=== PATIENT | female | born 1995 | race Two or more races ===

== ENCOUNTER 2020-10-29 09:22 | Emergency (ER) | payer OTHER, SELFPAY ==
--- NOTE | ~2020-10-29 | US_ITS ---
EXAMINATION: US RETROPERITONEAL LIMITED (RENAL ONLY) CLINICAL INFORMATION: Right flank pain. Evaluate for stone COMPARISON: None TECHNIQUE: 2 grayscale imaging of kidneys was performed. FINDINGS: RIGHT KIDNEY: 11.6 x 4.0 x 4.8 cm (SAG x AP x TRV). The kidney is normal in size, contour, and echogenicity. Renal cortical thickness is normal. No calculi or focal parenchymal lesions. No hydronephrosis. LEFT KIDNEY: 12.6 x 4.7 x 4.7 cm (SAG x AP x TRV). The kidney is normal in size, contour, and echogenicity. Renal cortical thickness is normal. No calculi or focal parenchymal lesions. No hydronephrosis. US/US renal BI IMPRESSION: Unremarkable renal ultrasound.
[2020-10-29 09:53] VITALS: BP 125/86; RESP 14; TEMP 36.1; O2SAT 100; BMI 36.8
--- NOTE | 2020-10-29 10:27 | ED_ITS ---
HPI - Female Genitourinary General Chief complaint: Urogenital-Female Stated complaint: blood in urine Time Seen by Provider: 10/29/20 10:27 Source: patient Mode of arrival: ambulatory Limitations: no limitations History of Present Illness MD elicited complaint: dysuria, UTI , back pain and other (hemturia) Onset (ago): day(s) (started Thursday) Location of symptoms: suprapubic Severity: moderate Quality of pain: cramping Consistency: intermittent Vaginal discharge: none Vaginal bleeding: none Urinary symptoms: Dysuria, Urgency, Frequency and Hematuria Exacerbating factors: urination Relieving factors: none Associated symptoms: abdominal pain, nausea and back pain Treatment prior to arrival: none Related Data Previous Rx's Medication Instructions Recorded cefuroxime axetil 500 mg PO BID 10 Days #20 tab 10/29/20 ibuprofen 600 mg PO Q6H PRN #30 tab 10/29/20 ondansetron 4 mg PO Q8H PRN #20 tab 10/29/20 phenazopyridine [Pyridium] 200 mg PO TID PRN #6 tab 10/29/20 Allergies Allergy/AdvReac Type Severity Reaction Status Date / Time No Known Allergies Allergy Verified 10/29/20 10:35 Review of Systems Review of Systems: Constitutional : No Weight loss, No Fever, No Chills ENT/Mouth : No sore throat, No Rhinorrhea Eyes: No Swelling, No Redness Cardiovascular : No Chest Pain, No SOB, NoEdema Respiratory : No Cough, No Sputum, No Wheezing Gastrointestinal : Positive Nausea, Positive Vomiting, no Diarrhea, positive abdominal Pain, No Hematochezia, No Melena Genitourinary : pos Dysuria, pos Urinary Frequency, pos Hematuria, No Urgency Musculoskeletal : No joint pain, No Myalgias, No Joint Swelling Skin : No Skin Lesions, No rash Neuro : No Weakness, No Numbness, No Dizziness, No Headache Psych : No Anxiety/Panic, No Depression Heme/Lymph: No Bruising, No Lymphadenopathy Endocrine : No Polyuria, No Polydipsia All other systems reviewed and are negative. [facility] Past Medical History Attestation statement: The following information was validated with the patient. Medical History No known health problems Social History Social History (Updated 10/29/20 @ 10:39 by Margy Green DO) Alcohol intake: never Smoking Status: Never smoker Use of substances other than those prescribed or required for medical reasons: No Advance Directives: Yes Advance Directives Information Provided: Yes Advance Directives on File: No Physical Exam Vital Signs: Vital Signs: Last Vital Signs Temp 97 F 10/29/20 09:53 Resp 14 10/29/20 09:53 BP 125/86 10/29/20 09:53 Pulse Ox 100 10/29/20 09:53 Body Mass Index 36.8 Appearance: Alert. Oriented X3. No acute distress. Eyes: Pupils equal, round and reactive to light. ENT: Pharynx normal. Neck: Normal inspection. Neck supple. CVS: Normal heart rate and rhythm. Pulses normal. Respiratory: No respiratory distress. Breath sounds normal. Abdomen: Soft and mild suprapubic ttp Back: mild R CVA ttp Skin: Skin warm and dry. Normal skin color. Normal skin turgor. Extremities: No lower extremity edema. No calf ttp Neuro: Oriented X 3. No motor deficit. No sensory deficit. Course Course Course Narrative: stable labs, stable VS, negative US can be managed as outpatient at this time MDM - Female Genitourinary MDM Narrative Medical decision making narrative: 25 yo female with 2 days of dysuria, hematuria, bladder spasms, nausea and mild back pain likely UTI vs pyelonephritis, she is not toxic, afebrile here, very mild CVA ttp - at this time will obtain basic labs, hydrate, IV ceftriaxone for UTI, US to evaluate for stones Lab Data Result diagrams: 10/29/20 10:46 10/29/20 10:46 Labs: Lab Results 10/29/20 10/29/20 10/29/20 Range/Units 10:04 10:04 10:46 WBC 12.6 H (4.8-10.8) X10*3/uL RBC 4.62 (4.20-5.50) X10*6/uL Hgb 13.2 (12.0-16.0) g/dl Hct 40.7 (37-47) % MCV 88.1 (80-98) fL MCH 28.6 (27.0-33.0) pg MCHC 32.4 (31.0-35.0) g/dl RDW 12.8 (11.0-16.0) % Plt Count 338 (160-400) X10*3/uL MPV 9.8 (9.4-12.3) fL Immature Gran % (Auto) 0.4 (0.0-0.4) % Neut % (Auto) 77.5 H (45-73) % Lymph % (Auto) 16.7 L (20-40) % [place] % (Auto) 4.6 (2-11) % Eos % (Auto) 0.6 (0-4) % Baso % (Auto) 0.2 (0-2) % Lymph # (Auto) 2.1 (1.2-4.9) X10*3/uL [place] # (Auto) 0.6 (0.1-1.2) X10*3/uL Eos # (Auto) 0.1 (0.0-0.4) X10*3/uL Baso # (Auto) 0.0 (0.0-0.2) X10*3/uL Abs Immat Gran (auto) 0.05 H (0.00-0.03) X10*3/uL Absolute Neuts (auto) 9.8 H (2.0-8.3) X10*3/uL Absolute Nucleated RBC 0.000 (0.0-0.012) X10*3/uL Nucleated RBC % (auto) 0.0 (0.0-0.2) /100WBC Hold Blue Top Sodium (135-145) mmol/L Potassium (3.3-5.1) mmol/L Chloride (96-108) mmol/L Carbon Dioxide (22-29) mmol/L Anion Gap (12-20) BUN (9-16) mg/dL Creatinine (0.5-1.4) mg/dL Estim Creat Clear Calc Estimated GFR Random Glucose (60-115) mg/dL Calcium (8.4-10.2) mg/dL Magnesium (1.6-2.6) mg/dL Total Bilirubin (0.0-1.0) mg/dL Direct Bilirubin (0.0-0.5) mg/dL AST (5-31) U/L ALT (0-31) U/L Alkaline Phosphatase (39-117) U/L Total Protein (6.5-8.0) g/dL Albumin (3.5-5.0) g/dL Lipase (8-78) U/L Urine Color YELLOW Urine Appearance HAZY Urine pH 6.0 (5.0-8.0) Ur Specific [place] 1.025 (1.005-1.025) Urine Protein NEG (NEG-TRACE) MG/DL Urine Glucose (UA) NEG (NEG) MG/DL Urine Ketones NEG (NEG) MG/DL Urine Blood 2+ H (NEG) Urine Nitrite POS H (NEG) Ur Leukocyte Esterase 1+ H (NEG) Urine RBC 1-4 (0) /HPF Urine WBC 15-29 H (0-4) /HPF Ur Squamous Epith Cells 3+ /LPF Urine Bacteria 3+ /LPF Urine Test NEGATIVE (NEGATIVE) 10/29/20 10/29/20 Range/Units 10:46 10:46 WBC (4.8-10.8) X10*3/uL RBC (4.20-5.50) X10*6/uL Hgb (12.0-16.0) g/dl Hct (37-47) % MCV (80-98) fL MCH (27.0-33.0) pg MCHC (31.0-35.0) g/dl RDW (11.0-16.0) % Plt Count (160-400) X10*3/uL MPV (9.4-12.3) fL Immature Gran % (Auto) (0.0-0.4) % Neut % (Auto) (45-73) % Lymph % (Auto) (20-40) % [place] % (Auto) (2-11) % Eos % (Auto) (0-4) % Baso % (Auto) (0-2) % Lymph # (Auto) (1.2-4.9) X10*3/uL [place] # (Auto) (0.1-1.2) X10*3/uL Eos # (Auto) (0.0-0.4) X10*3/uL Baso # (Auto) (0.0-0.2) X10*3/uL Abs Immat Gran (auto) (0.00-0.03) X10*3/uL Absolute Neuts (auto) (2.0-8.3) X10*3/uL Absolute Nucleated RBC (0.0-0.012) X10*3/uL Nucleated RBC % (auto) (0.0-0.2) /100WBC Hold Blue Top SEE NOTE Sodium 141 (135-145) mmol/L Potassium 4.2 (3.3-5.1) mmol/L Chloride 105 (96-108) mmol/L Carbon Dioxide 27 (22-29) mmol/L Anion Gap 13 (12-20) BUN 15 (9-16) mg/dL Creatinine 0.67 (0.5-1.4) mg/dL Estim Creat Clear Calc 140.2 Estimated GFR > 60 Random Glucose 85 (60-115) mg/dL Calcium 9.4 (8.4-10.2) mg/dL Magnesium 2.1 (1.6-2.6) mg/dL Total Bilirubin 0.8 (0.0-1.0) mg/dL Direct Bilirubin 0.3 (0.0-0.5) mg/dL AST 18 (5-31) U/L ALT 36 H (0-31) U/L Alkaline Phosphatase 140 H (39-117) U/L Total Protein 7.9 (6.5-8.0) g/dL Albumin 4.2 (3.5-5.0) g/dL Lipase 10 (8-78) U/L Urine Color Urine Appearance Urine pH (5.0-8.0) Ur Specific [place] (1.005-1.025) Urine Protein (NEG-TRACE) MG/DL Urine Glucose (UA) (NEG) MG/DL Urine Ketones (NEG) MG/DL Urine Blood (NEG) Urine Nitrite (NEG) Ur Leukocyte Esterase (NEG) Urine RBC (0) /HPF Urine WBC (0-4) /HPF Ur Squamous Epith Cells /LPF Urine Bacteria /LPF Urine Test (NEGATIVE) Discharge Plan Discharge Clinical Impression: Pyelonephritis Patient Disposition: Home, Self-Care Instructions: Kidney Infection (ED) Additional Instructions: return to ED for any worsening symptoms or concerns please take the oral antibiotic tonight Prescriptions: New cefuroxime axetil 500 mg tablet 500 mg PO BID 10 Days Qty: 20 RF: 0 ibuprofen 600 mg tablet 600 mg PO Q6H PRN (Reason: pain) Qty: 30 RF: 0 ondansetron 4 mg tablet,disintegrating 4 mg PO Q8H PRN (Reason: nausea and vomiting) Qty: 20 RF: 0 phenazopyridine [Pyridium] 200 mg tablet 200 mg PO TID PRN (Reason: pain) Qty: 6 RF: 0
[2020-10-29 10:30] LABS: Glucose Urine UA NEG (NEG); Leukocyte Esterase Urine 1+ (NEG); Nitrite Urine POS (NEG); Specific Gravity - Urine 1.025 (1.005-1.025); UACC Culture Trigger YES; UPreg QC Valid YES; Urine Blood 2+ (NEG); Urine Ketones NEG (NEG); Urine Pregnancy NEGATIVE (NEGATIVE); Urine Protein NEG (NEG-TRACE)
[2020-10-29 10:33] LABS: Appearance Urine HAZY; Color Urine YELLOW
[2020-10-29 10:41] LABS: Bacteria Urine 3+ /LPF; Squamous Epithelial Cell Urine 3+ /LPF
[2020-10-29] MEDS: Phenazopyridine HCL 200 MG TABLET PO (10:51)
[2020-10-29] MEDS: cefTRIAXone sodium 1 GM in 0.9 % Sodium Chloride 50 ML IV (10:51)
[2020-10-29] MEDS: Ketorolac Tromethamine 30 MG/ML VIAL IVPUSH (10:52)
[2020-10-29] MEDS: 0.9 % Sodium Chloride 1,000 ML 999 ML IVCONT (10:52)
[2020-10-29] MEDS: ondansetron HCL 4 MG/2 ML VIAL IVPUSH (10:52)
[2020-10-29 10:55] LABS: MANUAL DIFF FLAG NO
[2020-10-29 10:57] LABS: Basophils Percent Auto 0.2 % (0-2); Eosinophils Absolute Auto 0.1 X10*3/uL (0.0-0.4); Eosinophils Percent Auto 0.6 % (0-4); Hematocrit 40.7 % (37-47); Hemoglobin 13.2 g/dl (12.0-16.0); Imm Gran Abs Auto 0.05 X10*3/uL (0.00-0.03); Imm Gran Pct Auto 0.4 % (0.0-0.4); Lymphocytes Absolute Auto 2.1 X10*3/uL (1.2-4.9); Lymphocytes Percent Auto 16.7 % (20-40); Mean Corpuscular HGB Conc 32.4 g/dl (31.0-35.0); Mean Corpuscular Hemoglobin 28.6 pg (27.0-33.0); Mean Corpuscular Volume 88.1 fL (80-98); Mean Platelet Volume 9.8 fL (9.4-12.3); Monocytes Absolute Auto 0.6 X10*3/uL (0.1-1.2); Monocytes Percent Auto 4.6 % (2-11); Neutrophils Absolute Auto 9.8 X10*3/uL (2.0-8.3); Neutrophils Percent Auto 77.5 % (45-73); Platelet Count 338 X10*3/uL (160-400); Red Blood Count 4.62 X10*6/uL (4.20-5.50); Red Cell Distribution Width 12.8 % (11.0-16.0); White Blood Count 12.6 X10*3/uL (4.8-10.8)
[2020-10-29 11:32] LABS: Alanine Aminotransferase 36 U/L (0-31); Albumin Level 4.2 g/dL (3.5-5.0); Alkaline Phosphatase 140 U/L (39-117); Anion Gap 13 (12-20); Aspartate Amino Transferase 18 U/L (5-31); Bilirubin Direct 0.3 mg/dL (0.0-0.5); Bilirubin Total 0.8 mg/dL (0.0-1.0); Blood Urea Nitrogen 15 mg/dL (9-16); Calcium 9.4 mg/dL (8.4-10.2); Carbon Dioxide 27 mmol/L (22-29); Chloride 105 mmol/L (96-108); Creatinine Clr Calc Pharmacy 140.2; Estimated Glomerular Filt Rate > 60; Glucose Random 85 mg/dL (60-115); Lipase 10 U/L (8-78); Magnesium 2.1 mg/dL (1.6-2.6); Potassium 4.2 mmol/L (3.3-5.1); Sodium 141 mmol/L (135-145); Total Protein 7.9 g/dL (6.5-8.0)
--- NOTE | 2020-10-29 11:36 | PC.NURSE ---
pt ambulating to us w steady gait.
== END 2020-10-29 12:41 | disposition home or self-care (01) ==
PROVIDERS: Emergency Provider Emergency Medicine; PCP Internal Medicine
DX: N12 Tubulo-interstitial nephritis, not specified as acute or chronic (principal); R31.9 Hematuria, unspecified; Z79.899 Other long term (current) drug therapy
CPT/HCPCS: 36415; 76775; 80048; 80076; 81001; 81003; 81025; 83690; 83735; 85025; 87086; 87088; 87186; 96365; 96375; 99284; J0696; J1885; J2405

== ENCOUNTER 2020-12-23 19:31 | Emergency (ER) | payer OTHER, SELFPAY ==
--- NOTE | ~2020-12-23 | CT_ITS ---
EXAMINATION: CT ABDOMEN AND PELVIS WITH CONTRAST CLINICAL INFORMATION: Right flank pain. Abdomen pain. Hematuria. Nausea, vomiting COMPARISON: The report of renal ultrasound 10/29/20 is unremarkable TECHNIQUE: Multidetector volumetric images were obtained from the superior aspect of the liver through the pubic symphysis following administration 100 mL of Omnipaque 350 intravenous contrast. Sagittal and coronal reformatted images were obtained on the technologist's workstation. Oral contrast: No This CT examination was performed using dose optimization techniques as appropriate, variously including the following: *Automated exposure control *Adjustment of mA and/or kV according to patient size (this includes techniques or standardized protocols for targeted exams where dose is matched to indication/reason for exam; i.e. extremities or head) *Use of iterative reconstruction technique DLP: 942 mGy-cm FINDINGS: Digital Travel Administrator: No disproportionate small bowel dilation. Gas and fecal residue throughout the colon to level the rectum. No evidence of pneumoperitoneum. LUNG BASES: Small sliding-type hiatal hernia. LIVER, GALLBLADDER, AND BILIARY TREE: No suspicious abnormality in the liver. There is no opaque gallstone. There is no biliary dilation PANCREAS: Within normal limits SPLEEN: Normal ADRENAL GLANDS: Normal KIDNEYS AND URETERS: The renal pelves are mildly prominent. No dilation of the infundibula or calyces. There is a 0.2 cm nonobstructing lower pole right renal calculus 13.9 cm from the skin. No perinephric stranding. No ureteral calculus. There is a probably septated cyst in the lower pole the left kidney. No suspicious features. This does not require any further evaluation. The nephrograms are symmetric BLADDER: No abnormality demonstrated GASTROINTESTINAL TRACT: There is a large amount of fecal residue throughout the colon. No localized colonic wall thickening. No pericolonic fat stranding. No CT evidence of acute appendicitis. No small bowel dilation. Stomach is not well distended. ABDOMINAL WALL: No significant hernia is appreciated. LYMPH NODES: There are no enlarged abdominal or pelvic lymph nodes. There is no free intraperitoneal fluid. VASCULAR: There is no abdominal aortic aneurysm. The portal vein enhances. PELVIC VISCERA: The uterus appears within normal limits. There are likely some physiologic ovarian cysts. OSSEOUS STRUCTURES: No suspicious abnormality. CT/CT abdomen pelvis w con IMPRESSION: Punctate nonobstructing lower pole right renal calculus. No ureteral calculus demonstrated. No acute abnormality demonstrated. No evidence of bowel obstruction. Large amount of fecal residue in the colon.
[2020-12-23 19:36] VITALS: BP 130/67; PULSE 80; RESP 18; TEMP 36.8; O2SAT 100; BMI 37.2
[2020-12-23 19:53] VITALS: BP 119/80; PULSE 67; RESP 18; TEMP 36.9; O2SAT 100
[2020-12-23 20:03] VITALS: BP 121/64; PULSE 65
[2020-12-23 20:09] LABS: Glucose Urine UA NEG (NEG); Leukocyte Esterase Urine TRACE (NEG); Nitrite Urine NEG (NEG); Specific Gravity - Urine >= 1.030 (1.005-1.025); UACC Culture Trigger YES; Urine Blood NEG (NEG); Urine Ketones NEG (NEG); Urine Protein NEG (NEG-TRACE)
[2020-12-23 20:12] LABS: Appearance Urine CLOUDY; Color Urine YELLOW
[2020-12-23 20:28] LABS: Bacteria Urine TRACE /LPF; Calcium Oxalate Crystals Urine 3+ /LPF; RBC Urine 0-2 /HPF (0); Squamous Epithelial Cell Urine 4+ /LPF
[2020-12-23 20:29] LABS: UPreg QC Valid YES; Urine Pregnancy NEGATIVE (NEGATIVE)
[2020-12-23 20:49] LABS: MANUAL DIFF FLAG NO
[2020-12-23] MEDS: 0.9 % Sodium Chloride 1,000 ML 999 ML IVCONT (20:49)
[2020-12-23] MEDS: ondansetron HCL 4 MG/2 ML VIAL IVPUSH (20:50)
[2020-12-23] MEDS: Ketorolac Tromethamine 30 MG/ML VIAL IVPUSH (20:50)
[2020-12-23 20:52] LABS: Basophils Percent Auto 0.2 % (0-2); Eosinophils Absolute Auto 0.1 X10*3/uL (0.0-0.4); Eosinophils Percent Auto 1.5 % (0-4); Hematocrit 42.6 % (37-47); Hemoglobin 13.9 g/dl (12.0-16.0); Imm Gran Abs Auto 0.02 X10*3/uL (0.00-0.03); Imm Gran Pct Auto 0.2 % (0.0-0.4); Lymphocytes Absolute Auto 2.5 X10*3/uL (1.2-4.9); Lymphocytes Percent Auto 26.2 % (20-40); Mean Corpuscular HGB Conc 32.6 g/dl (31.0-35.0); Mean Corpuscular Hemoglobin 28.8 pg (27.0-33.0); Mean Corpuscular Volume 88.2 fL (80-98); Mean Platelet Volume 9.7 fL (9.4-12.3); Monocytes Absolute Auto 0.5 X10*3/uL (0.1-1.2); Monocytes Percent Auto 4.9 % (2-11); Neutrophils Absolute Auto 6.3 X10*3/uL (2.0-8.3); Platelet Count 349 X10*3/uL (160-400); Red Blood Count 4.83 X10*6/uL (4.20-5.50); Red Cell Distribution Width 12.8 % (11.0-16.0); White Blood Count 9.4 X10*3/uL (4.8-10.8)
[2020-12-23 21:00] VITALS: BP 129/65; PULSE 67
[2020-12-23 21:01] VITALS: BP 136/65; PULSE 68
--- NOTE | 2020-12-23 21:09 | ED.ABDPAIN ---
HPI - Abdominal Pain General Chief Complaint: Abdominal Pain Stated Complaint: Flank pain Time Seen by Provider: 12/23/20 19:59 Source: patient Mode of arrival: ambulatory Limitations: no limitations History of Present Illness HPI narrative: 25-year-old female with a past medical history of pyelonephritis presenting to the ED with complaints of bilateral back pain radiating to her bilateral flanks into her right lower quadrant for the past 5 days worse today. With associated urinary urgency / frequency. Reports that she also had hematuria that has resolved. Also reports nausea /vomiting and dizziness. Reports she is moving her bowels normally. Denies any headaches, head injury, changes in vision, neck pain/ stiffness, chest pain, shortness of breath, palpitations, blood in her emesis, diarrhea, constipation, black or bloody stools, vaginal bleeding or abnormal vaginal discharge. MD elicited complaint: abdominal pain and flank pain Pertinent past history: past UTI and other ( Pyelonephritis) Onset (ago): day(s) ( 5 days worse today) Pain Consistency: constant Location: L flank, R flank and other ( bilateral mid to lower back) Severity: moderate Quality: aching Radiation: RLQ Exacerbating factors: nothing Relieving factors: nothing Associated symptoms: nausea, vomiting, chills, dysuria and hematuria Related Data Previous Rx's Medication Instructions Recorded cefuroxime axetil 500 mg PO BID 10 Days #20 tab 10/29/20 ibuprofen 600 mg PO Q6H PRN #30 tab 10/29/20 ondansetron 4 mg PO Q8H PRN #20 tab 10/29/20 phenazopyridine [Pyridium] 200 mg PO TID PRN #6 tab 10/29/20 dicyclomine 10 mg PO BID #14 cap 12/23/20 nitrofurantoin monohyd/m-cryst 100 mg PO BID 7 Days #14 cap 12/23/20 [Macrobid] ondansetron HCl [Zofran] 4 mg PO Q8H PRN #14 tab 12/23/20 polyethylene glycol 3350 [Miralax] 17 g PO DAILY #238 g 12/23/20 Allergies Allergy/AdvReac Type Severity Reaction Status Date / Time No Known Allergies Allergy Verified 12/23/20 19:35 Review of Systems Review of Systems Constitutional : positive chills, No Weight loss, No Fever, No Night Sweats, No Fatigue, NoMalaise ENT/Mouth: No ear pain, No sore throat, No Difficulty swallowing Cardiovascular : No Chest Pain, No SOB, No Dyspnea on Exertion, No Orthopnea, NoEdema, No Palpitations Respiratory : No Cough, No Sputum, No Wheezing, No Dyspnea Gastrointestinal : positive nausea/ vomiting / abdominal pain, No Diarrhea, No blood streaked emesis, No coffee-ground emesis, No gross hematemesis, No blood streak stool, No gross hematochezia, No Melena Genitourinary : positive resolved hematuria, positive dysuria /urinary urgency /frequency, positive bilateral flank pain, No irregular bleeding, No Urinary Incontinence Musculoskeletal : No joint pain, No Myalgias, No Joint Swelling Skin : No Skin Lesions, No rash Neuro : No Weakness, No Numbness, No Paresthesias, No Loss of Consciousness, NoDizziness, No Headache Psych : No Social Issues, Heme/Lymph: No Bruising, No Bleeding,No Lymphadenopathy Endocrine : No Polyuria, No Polydipsia, No Temperature Intolerance Yes all other systems are reviewed and are negative Physical Exam Vital Signs: Vital Signs: Last Vital Signs Temp 98.4 F 12/23/20 19:53 Pulse 68 12/23/20 21:01 Resp 18 12/23/20 19:53 BP 136/65 12/23/20 21:01 Pulse Ox 100 12/23/20 19:53 Body Mass Index 37.2 vital signs have been reviewed as normal and appeared to be correct. Blood pressure normal. Heart rate normal. Respiration rate normal. Temperature normal. Oxygen saturation normal. Appearance: Alert. Oriented X3. No acute distress. Head: Normal external exam. Normocephalic. Eyes: PERRLA. EOMI. Conjunctiva and sclera normal. Eyelids normal. ENT: Pharynx normal. Uvula midline. Moist mucous membranes. Neck: Normal inspection. Neck supple. FROM. No adenopathy. No meningeal signs. CVS: Normal heart rate and rhythm. Heart sound normal. No murmurs noted. Pulses normal throughout. Respiratory: No respiratory distress. Painless inspiration. Breath sounds normal. No wheezes/rales/rhonchi noted. Chest nontender. No accessory muscle usage noted or decreased air movement noted. Abdomen: Soft and mild tenderness to palpation to bilateral flank/right lower quadrant / suprapubic area. Nondistended. No guarding. No rigidity. Bowel sounds normal in all 4 quadrants. No distention noted. No organomegaly noted. No visible injury noted. No rebound tenderness. Negative Rovsing sign. Negative obturator's sign. Negative psoas sign. Negative Velasquez sign. Back: positive bilateral CVA tenderness. Full range of motion noted. Skin: Skin warm and dry. Normal skin color. Normal skin turgor. No rashes/lesions/lacerations noted. Extremities: Extremities exhibit normal range of motion. Extremities nontender. Neuro: Oriented X 3. No motor deficit. No sensory deficit. Reflexes normal. Normal steady gait. Course Course Course Narrative: 20pm - 25-year-old female with a past medical history of pyelonephritis presenting to the ED with complaints of bilateral back pain radiating to her bilateral flanks into her right lower quadrant for the past 5 days worse today. With associated urinary urgency / frequency. Reports that she also had hematuria that has resolved. Also reports nausea /vomiting and dizziness. Reports she is moving her bowels normally. Denies any headaches, head injury, changes in vision, neck pain/ stiffness, chest pain, shortness of breath, palpitations, blood in her emesis, diarrhea, constipation, black or bloody stools, vaginal bleeding or abnormal vaginal discharge. Plan: Labs, UA, Orthostatic vitals, CT scan of abdomen pelvis with IV contrast. provide a L of IV fluids, 4 mg of Zofran and 30 mg of IV Toradol then re-evaluate. Reevaluation(s) Reevaluation #1: - patient with baseline elevated LFTs otherwise all other labs are within normal limits. Urine is negative. Patient with +1 leukocytes otherwise negative for nitrates. Although patient had symptoms in the past and was positive urine culture therefore will treat at this time. Otherwise CT scan of abdomen and pelvis revealed punctuate nonobstructing lower pole right renal calculus. No urethral calculus demonstrated. No acute abnormality demonstrated. No evidence of bowel obstruction. Large amount of fecal residue in the colon. - Therefore will DC home with antibiotics for UTI and symptomatic treatment along with Colace and MiraLax for constipation and instructions follow-up with primary care provider. Patient understands agrees with this plan. Time: 23:05 [facility] - Abdominal Pain Medical Records Attestation: I reviewed the patient's medical records. Lab Data Attestation: I reviewed the patient's lab results. Result diagrams: 12/23/20 20:46 12/23/20 20:46 Labs: Lab Results 12/23/20 12/23/20 12/23/20 Range/Units 19:57 19:57 20:46 WBC 9.4 (4.8-10.8) X10*3/uL RBC 4.83 (4.20-5.50) X10*6/uL Hgb 13.9 (12.0-16.0) g/dl Hct 42.6 (37-47) % MCV 88.2 (80-98) fL MCH 28.8 (27.0-33.0) pg MCHC 32.6 (31.0-35.0) g/dl RDW 12.8 (11.0-16.0) % Plt Count 349 (160-400) X10*3/uL MPV 9.7 (9.4-12.3) fL Immature Gran % (Auto) 0.2 (0.0-0.4) % Neut % (Auto) 67.0 (45-73) % Lymph % (Auto) 26.2 (20-40) % [place] % (Auto) 4.9 (2-11) % Eos % (Auto) 1.5 (0-4) % Baso % (Auto) 0.2 (0-2) % Lymph # (Auto) 2.5 (1.2-4.9) X10*3/uL [place] # (Auto) 0.5 (0.1-1.2) X10*3/uL Eos # (Auto) 0.1 (0.0-0.4) X10*3/uL Baso # (Auto) 0.0 (0.0-0.2) X10*3/uL Abs Immat Gran (auto) 0.02 (0.00-0.03) X10*3/uL Absolute Neuts (auto) 6.3 (2.0-8.3) X10*3/uL Absolute Nucleated RBC 0.000 (0.0-0.012) X10*3/uL Nucleated RBC % (auto) 0.0 (0.0-0.2) /100WBC Hold Blue Top Sodium (135-145) mmol/L Potassium (3.3-5.1) mmol/L Chloride (96-108) mmol/L Carbon Dioxide (22-29) mmol/L Anion Gap (12-20) BUN (9-16) mg/dL Creatinine (0.5-1.4) mg/dL Estim Creat Clear Calc Estimated GFR Random Glucose (60-115) mg/dL Calcium (8.4-10.2) mg/dL Magnesium (1.6-2.6) mg/dL Total Bilirubin (0.0-1.0) mg/dL AST (5-31) U/L ALT (0-31) U/L Alkaline Phosphatase (39-117) U/L Total Protein (6.5-8.0) g/dL Albumin (3.5-5.0) g/dL Lipase (8-78) U/L Beta HCG, Quant mIU/mL Urine Color YELLOW Urine Appearance CLOUDY Urine pH 6.0 (5.0-8.0) Ur Specific [place] >= 1.030 H (1.005-1.025) Urine Protein NEG (NEG-TRACE) MG/DL Urine Glucose (UA) NEG (NEG) MG/DL Urine Ketones NEG (NEG) MG/DL Urine Blood NEG (NEG) Urine Nitrite NEG (NEG) Ur Leukocyte Esterase TRACE H (NEG) Urine RBC 0-2 (0) /HPF Urine WBC 1-4 (0-4) /HPF Ur Squamous Epith Cells 4+ /LPF Calcium Oxalate Crystal 3+ /LPF Urine Bacteria TRACE /LPF Urine Test NEGATIVE (NEGATIVE) 12/23/20 12/23/20 Range/Units 20:46 20:46 WBC (4.8-10.8) X10*3/uL RBC (4.20-5.50) X10*6/uL Hgb (12.0-16.0) g/dl Hct (37-47) % MCV (80-98) fL MCH (27.0-33.0) pg MCHC (31.0-35.0) g/dl RDW (11.0-16.0) % Plt Count (160-400) X10*3/uL MPV (9.4-12.3) fL Immature Gran % (Auto) (0.0-0.4) % Neut % (Auto) (45-73) % Lymph % (Auto) (20-40) % [place] % (Auto) (2-11) % Eos % (Auto) (0-4) % Baso % (Auto) (0-2) % Lymph # (Auto) (1.2-4.9) X10*3/uL [place] # (Auto) (0.1-1.2) X10*3/uL Eos # (Auto) (0.0-0.4) X10*3/uL Baso # (Auto) (0.0-0.2) X10*3/uL Abs Immat Gran (auto) (0.00-0.03) X10*3/uL Absolute Neuts (auto) (2.0-8.3) X10*3/uL Absolute Nucleated RBC (0.0-0.012) X10*3/uL Nucleated RBC % (auto) (0.0-0.2) /100WBC Hold Blue Top SEE NOTE Sodium 139 (135-145) mmol/L Potassium 4.2 (3.3-5.1) mmol/L Chloride 104 (96-108) mmol/L Carbon Dioxide 24 (22-29) mmol/L Anion Gap 15 (12-20) BUN 12 (9-16) mg/dL Creatinine 0.70 (0.5-1.4) mg/dL Estim Creat Clear Calc 134.8 Estimated GFR > 60 Random Glucose 91 (60-115) mg/dL Calcium 9.4 (8.4-10.2) mg/dL Magnesium 2.1 (1.6-2.6) mg/dL Total Bilirubin 0.5 (0.0-1.0) mg/dL AST 40 H D (5-31) U/L ALT 71 H (0-31) U/L Alkaline Phosphatase 138 H (39-117) U/L Total Protein 7.9 (6.5-8.0) g/dL Albumin 4.0 (3.5-5.0) g/dL Lipase 18 (8-78) U/L Beta HCG, Quant < 2 mIU/mL Urine Color Urine Appearance Urine pH (5.0-8.0) Ur Specific [place] (1.005-1.025) Urine Protein (NEG-TRACE) MG/DL Urine Glucose (UA) (NEG) MG/DL Urine Ketones (NEG) MG/DL Urine Blood (NEG) Urine Nitrite (NEG) Ur Leukocyte Esterase (NEG) Urine RBC (0) /HPF Urine WBC (0-4) /HPF Ur Squamous Epith Cells /LPF Calcium Oxalate Crystal /LPF Urine Bacteria /LPF Urine Test (NEGATIVE) Imaging Data CT scan of abdomen pelvis with IV contrast: Attestation: I personally reviewed and interpreted this imaging study as follows: Radiologist's impression: FINDINGS: Digital Cat Breeder: No disproportionate small bowel dilation. Gas and fecal residue throughout the colon to level the rectum. No evidence of pneumoperitoneum. LUNG BASES: Small sliding-type hiatal hernia. LIVER, GALLBLADDER, AND BILIARY TREE: No suspicious abnormality in the liver. There is no opaque gallstone. There is no biliary dilation PANCREAS: Within normal limits SPLEEN: Normal ADRENAL GLANDS: Normal KIDNEYS AND URETERS: The renal pelves are mildly prominent. No dilation of the infundibula or calyces. There is a 0.2 cm nonobstructing lower pole right renal calculus 13.9 cm from the skin. No perinephric stranding. No ureteral calculus. There is a probably septated cyst in the lower pole the left kidney. No suspicious features. This does not require any further evaluation. The nephrograms are symmetric BLADDER: No abnormality demonstrated GASTROINTESTINAL TRACT: There is a large amount of fecal residue throughout the colon. No localized colonic wall thickening. No pericolonic fat stranding. No CT evidence of acute appendicitis. No small bowel dilation. Stomach is not well distended. ABDOMINAL WALL: No significant hernia is appreciated. LYMPH NODES: There are no enlarged abdominal or pelvic lymph nodes. There is no free intraperitoneal fluid. VASCULAR: There is no abdominal aortic aneurysm. The portal vein enhances. PELVIC VISCERA: The uterus appears within normal limits. There are likely some physiologic ovarian cysts. OSSEOUS STRUCTURES: No suspicious abnormality. CT/CT abdomen pelvis w con IMPRESSION: Punctate nonobstructing lower pole right renal calculus. No ureteral calculus demonstrated. No acute abnormality demonstrated. No evidence of bowel obstruction. Large amount of fecal residue in the colon. Discharge Plan Discharge Clinical Impression: Calculus, renal, Constipation, UTI (urinary tract infection) Patient Disposition: Home, Self-Care Instructions: Constipation (ED), Kidney Stones (ED), Urinary Tract Infection in Women (ED), Renal Colic (ED) Prescriptions: New ondansetron HCl [Zofran] 4 mg tablet 4 mg PO Q8H PRN (Reason: nausea and vomiting) Qty: 14 RF: 0 nitrofurantoin monohyd/m-cryst [Macrobid] 100 mg capsule 100 mg PO BID 7 Days Qty: 14 RF: 0 polyethylene glycol 3350 [Miralax] 17 gram/dose powder 17 g PO DAILY Qty: 238 RF: 0 dicyclomine 10 mg capsule 10 mg PO BID Qty: 14 RF: 0 No Action cefuroxime axetil 500 mg tablet 500 mg PO BID 10 Days Qty: 20 RF: 0 ibuprofen 600 mg tablet 600 mg PO Q6H PRN (Reason: pain) Qty: 30 RF: 0 ondansetron 4 mg tablet,disintegrating 4 mg PO Q8H PRN (Reason: nausea and vomiting) Qty: 20 RF: 0 phenazopyridine [Pyridium] 200 mg tablet 200 mg PO TID PRN (Reason: pain) Qty: 6 RF: 0 Referrals: Ricardo Smith MD [Primary Care Provider] - 2 days Print Language: Cuban [facility] Past Medical History Attestation statement: The following information was validated with the patient. Medical History No known health problems Social History Social History Alcohol intake: never Patient Tobacco Use Status: Never used Tobacco Use of substances other than those prescribed or required for medical reasons: No Advance Directives: No Advance Directives Information Provided: Yes
[2020-12-23 21:17] LABS: Alanine Aminotransferase 71 U/L (0-31); Alkaline Phosphatase 138 U/L (39-117); Anion Gap 15 (12-20); Aspartate Amino Transferase 40 U/L (5-31); Bilirubin Total 0.5 mg/dL (0.0-1.0); Blood Urea Nitrogen 12 mg/dL (9-16); Calcium 9.4 mg/dL (8.4-10.2); Carbon Dioxide 24 mmol/L (22-29); Chloride 104 mmol/L (96-108); Creatinine Clr Calc Pharmacy 134.8; Estimated Glomerular Filt Rate > 60; Glucose Random 91 mg/dL (60-115); Lipase 18 U/L (8-78); Magnesium 2.1 mg/dL (1.6-2.6); Potassium 4.2 mmol/L (3.3-5.1); Sodium 139 mmol/L (135-145); Total Protein 7.9 g/dL (6.5-8.0)
[2020-12-23 21:24] LABS: HCG Quantitative < 2 mIU/mL
[2020-12-23] MEDS: iohexoL 350 MG/ML 100 ML INFUS..BTL IV (21:35)
== END 2020-12-23 23:23 | disposition home or self-care (01) ==
PROVIDERS: Physician Assistant Medical; Emergency Provider Internal Medicine; PCP Internal Medicine
DX: N39.0 Urinary tract infection, site not specified (principal); N20.0 Calculus of kidney; K59.00 Constipation, unspecified
CPT/HCPCS: 36415; 74177; 80053; 81001; 81003; 81025; 83690; 83735; 84702; 85025; 87086; 96361; 96374; 96375; 99284; J1885; J2405; Q9967

== ENCOUNTER 2021-02-06 11:38 | Emergency (ER) | payer OTHER, SELFPAY ==
--- NOTE | ~2021-02-06 | US_ITS ---
EXAMINATION: US OBSTETRICAL ULTRASOUND CLINICAL INFORMATION: Early . Bleeding, pain COMPARISON: None. LMP: 12/17/2020. Gestational age by maternal dates is 7 weeks 2 days. Estimated date of delivery by maternal dates is 09/23/2021. TECHNIQUE: Ultrasound of the maternal pelvis is performed using transabdominal transducer. M-mode Doppler is also performed. FINDINGS: There is a single intrauterine gestational sac with visible yolk sac, embryo/fetus, and cardiac activity. There is a small subchorionic hemorrhage/hematoma adjacent to the lower gestational sac and measuring 1.6 x 0.7 x 2.6 cm. HR: 140 beats per minute. CRL (crown rump length): 1.12 cm (7 weeks 2 days +/- 4 days). JOHAN (estimated date of delivery): 09/23/2021 +/- 4 days. MATERNAL ADNEXA: The right maternal ovary measures 3.2 x 2.2 x 2.7 cm. The left maternal ovary measures 3.3 x 1.7 x 2.8 cm. There is no maternal adnexal mass or maternal pelvic ascites demonstrated. US/US OB <= 14 weeks fetus IMPRESSION: 1. Single intrauterine gestation with ultrasound gestational age of 7 weeks 2 days +/- 4 days. 2. Estimated date of delivery is 09/23/2021 +/- 4 days. 3. Small subchorionic hemorrhage/hematoma measuring 1.6 x 0.7 x 2.6 cm. 4. cardiac activity is 140 bpm. 5. No maternal adnexal mass or pelvic ascites.
[2021-02-06 12:17] VITALS: PULSE 88; RESP 18; TEMP 36.9; O2SAT 100; BMI 38.4
--- NOTE | 2021-02-06 12:32 | ED_ITS ---
HPI - Female Genitourinary General Chief complaint: Vaginal Bleeding Stated complaint: 7 weeks , bleeding Time Seen by Provider: 02/06/21 12:28 Source: patient Mode of arrival: ambulatory Limitations: no limitations History of Present Illness HPI Narrative: 25 yo female D = LMP here with c/o 1 hour of vaginal bleeding and cramping, no prior issues related to this followed at [facility], no recent intercourse MD elicited complaint: vaginal bleeding and pelvic pain Onset (ago): hour(s) (1) Location of symptoms: suprapubic Severity: moderate Quality of pain: cramping Consistency: intermittent Vaginal bleeding: moderate and bright red Exacerbating factors: none Relieving factors: none Associated symptoms: denies other symptoms Patient : Yes Related Data Previous Rx's Medication Instructions Recorded cefuroxime axetil 500 mg tablet 500 mg PO BID 10 Days #20 tab 10/29/20 ibuprofen 600 mg tablet 600 mg PO Q6H PRN #30 tab 10/29/20 ondansetron 4 mg disintegrating 4 mg PO Q8H PRN #20 tab 10/29/20 tablet phenazopyridine 200 mg tablet 200 mg PO TID PRN #6 tab 10/29/20 (Pyridium) dicyclomine 10 mg capsule 10 mg PO BID #14 cap 12/23/20 nitrofurantoin 100 mg PO BID 7 Days #14 cap 12/23/20 monohydrate/macrocrystals 100 mg capsule (Macrobid) ondansetron HCl 4 mg tablet 4 mg PO Q8H PRN #14 tab 12/23/20 (Zofran) polyethylene glycol 3350 17 17 g PO DAILY #238 g 12/23/20 gram/dose oral powder (Miralax) Allergies Allergy/AdvReac Type Severity Reaction Status Date / Time No Known Allergies Allergy Verified 02/06/21 12:16 Review of Systems Review of Systems: Constitutional : No Fever, No Chills ENT/Mouth : No sore throat, No Rhinorrhea Eyes: No Eye Pain, No Redness Cardiovascular : No Chest Pain, No SOB Respiratory : No Cough, No Sputum, No Wheezing Gastrointestinal : no Nausea, No Vomiting, No Diarrhea, positive abdominal pain, Genitourinary : positive irregular bleeding, No Dysuria, No Urinary Frequency, positive pelvic pain Musculoskeletal : No Myalgias Skin : No rash Neuro : No Weakness, No Headache Psych : No Anxiety/Panic, No Depression Heme/Lymph: No bruising, No Lymphadenopathy Endocrine : No Polyuria, No Polydipsia All other systems reviewed and are negative [facility] Past Medical History Attestation statement: The following information was validated with the patient. Medical History No known health problems Social History Social History Alcohol intake: never Patient Tobacco Use Status: Never used Tobacco Use of substances other than those prescribed or required for medical reasons: No Advance Directives: Yes Advance Directives Information Provided: Yes Advance Directives on File: No Patient : Yes Physical Exam Vital Signs: Vital Signs: Last Vital Signs Temp 98.6 F 02/06/21 15:39 Pulse 84 02/06/21 15:39 Resp 18 02/06/21 15:39 BP 123/68 02/06/21 15:39 Pulse Ox 100 02/06/21 15:39 Body Mass Index 38.4 Appearance: Alert. Oriented X3. No acute distress. Eyes: Pupils equal, round and reactive to light. ENT: Pharynx normal. Neck: Normal inspection. Neck supple. CVS: Normal heart rate and rhythm. Pulses normal. Respiratory: No respiratory distress. Breath sounds normal. Abdomen: Soft and non-tender. No rebound or guarding : scant blood noted, os closed Skin: Skin warm and dry. Normal skin color. Normal skin turgor. Extremities: No lower extremity edema. No calf ttp Neuro: Oriented X 3. No motor deficit. No sensory deficit. MDM - Female Genitourinary MDM Narrative Medical decision making narrative: 25 yo female D = LMP approx 8 weeks here with c/o pelvic cramping and bleeding, will obtain labs, quant, Rh status, US to evaluate and IVF, dispo per results and findings. Lab Data Result diagrams: 02/06/21 12:53 02/06/21 12:53 Labs: Lab Results 02/06/21 02/06/21 02/06/21 Range/Units 12:53 12:53 12:53 WBC 12.8 H (4.8-10.8) X10*3/uL RBC 4.38 (4.20-5.50) X10*6/uL Hgb 12.7 (12.0-16.0) g/dl Hct 38.4 (37-47) % MCV 87.7 (80-98) fL MCH 29.0 (27.0-33.0) pg MCHC 33.1 (31.0-35.0) g/dl RDW 12.4 (11.0-16.0) % Plt Count 319 (160-400) X10*3/uL MPV 9.9 (9.4-12.3) fL Immature Gran % (Auto) 0.4 (0.0-0.4) % Neut % (Auto) 78.7 H (45-73) % Lymph % (Auto) 15.2 L (20-40) % [place] % (Auto) 5.0 (2-11) % Eos % (Auto) 0.5 (0-4) % Baso % (Auto) 0.2 (0-2) % Lymph # (Auto) 1.9 (1.2-4.9) X10*3/uL [place] # (Auto) 0.6 (0.1-1.2) X10*3/uL Eos # (Auto) 0.1 (0.0-0.4) X10*3/uL Baso # (Auto) 0.0 (0.0-0.2) X10*3/uL Abs Immat Gran (auto) 0.05 H (0.00-0.03) X10*3/uL Absolute Neuts (auto) 10.1 H (2.0-8.3) X10*3/uL Absolute Nucleated RBC 0.000 (0.0-0.012) X10*3/uL Nucleated RBC % (auto) 0.0 (0.0-0.2) /100WBC Sodium 138 (135-145) mmol/L Potassium 3.7 (3.3-5.1) mmol/L Chloride 106 (96-108) mmol/L Carbon Dioxide 23 (22-29) mmol/L Anion Gap 13 (12-20) BUN 9 (9-16) mg/dL Creatinine 0.65 (0.5-1.4) mg/dL Estim Creat Clear Calc 142.3 Estimated GFR > 60 Random Glucose 86 (60-115) mg/dL Calcium 9.3 (8.4-10.2) mg/dL Magnesium 2.0 (1.6-2.6) mg/dL Total Bilirubin 0.4 (0.0-1.0) mg/dL Direct Bilirubin 0.2 (0.0-0.5) mg/dL AST 15 D (5-31) U/L ALT 26 (0-31) U/L Alkaline Phosphatase 116 (39-117) U/L Total Protein 7.4 (6.5-8.0) g/dL Albumin 3.9 (3.5-5.0) g/dL Beta HCG, Quant 92717 mIU/mL Blood Type 02/06/21 Range/Units 13:09 WBC (4.8-10.8) X10*3/uL RBC (4.20-5.50) X10*6/uL Hgb (12.0-16.0) g/dl Hct (37-47) % MCV (80-98) fL MCH (27.0-33.0) pg MCHC (31.0-35.0) g/dl RDW (11.0-16.0) % Plt Count (160-400) X10*3/uL MPV (9.4-12.3) fL Immature Gran % (Auto) (0.0-0.4) % Neut % (Auto) (45-73) % Lymph % (Auto) (20-40) % [place] % (Auto) (2-11) % Eos % (Auto) (0-4) % Baso % (Auto) (0-2) % Lymph # (Auto) (1.2-4.9) X10*3/uL [place] # (Auto) (0.1-1.2) X10*3/uL Eos # (Auto) (0.0-0.4) X10*3/uL Baso # (Auto) (0.0-0.2) X10*3/uL Abs Immat Gran (auto) (0.00-0.03) X10*3/uL Absolute Neuts (auto) (2.0-8.3) X10*3/uL Absolute Nucleated RBC (0.0-0.012) X10*3/uL Nucleated RBC % (auto) (0.0-0.2) /100WBC Sodium (135-145) mmol/L Potassium (3.3-5.1) mmol/L Chloride (96-108) mmol/L Carbon Dioxide (22-29) mmol/L Anion Gap (12-20) BUN (9-16) mg/dL Creatinine (0.5-1.4) mg/dL Estim Creat Clear Calc Estimated GFR Random Glucose (60-115) mg/dL Calcium (8.4-10.2) mg/dL Magnesium (1.6-2.6) mg/dL Total Bilirubin (0.0-1.0) mg/dL Direct Bilirubin (0.0-0.5) mg/dL AST (5-31) U/L ALT (0-31) U/L Alkaline Phosphatase (39-117) U/L Total Protein (6.5-8.0) g/dL Albumin (3.5-5.0) g/dL Beta HCG, Quant mIU/mL Blood Type A Positive Discharge Plan Discharge Clinical Impression: Threatened Subchorionic hematoma in first trimester Qualifiers: Fetus number: single or unspecified fetus Qualified Code(s): O41.8X10 - Other specified disorders of amniotic fluid and membranes, first trimester, not applicable or unspecified Patient Disposition: Home, Self-Care Instructions: Threatened Miscarriage (ED), Subchorionic Hemorrhage (ED) Additional Instructions: return to ED for any worsening symptoms or concerns A POSITIVE quant [id number] hemoglobin 12.7/38.4 pelvic rest and follow up with OBGYN US/US OB <= 14 weeks fetus IMPRESSION: 1. Single intrauterine gestation with ultrasound gestational age of? 7 weeks 2 days +/- 4 days. 2. Estimated date of delivery is 09/23/2021 +/- 4 days. 3. Small subchorionic hemorrhage/hematoma measuring 1.6 x 0.7 x 2.6 cm. 4. cardiac activity is 140 bpm. 5. No maternal adnexal mass or pelvic ascites. Prescriptions: No Action cefuroxime axetil 500 mg tablet 500 mg PO BID 10 Days Qty: 20 RF: 0 ibuprofen 600 mg tablet 600 mg PO Q6H PRN (Reason: pain) Qty: 30 RF: 0 ondansetron 4 mg tablet,disintegrating 4 mg PO Q8H PRN (Reason: nausea and vomiting) Qty: 20 RF: 0 phenazopyridine [Pyridium] 200 mg tablet 200 mg PO TID PRN (Reason: pain) Qty: 6 RF: 0 ondansetron HCl [Zofran] 4 mg tablet 4 mg PO Q8H PRN (Reason: nausea and vomiting) Qty: 14 RF: 0 nitrofurantoin monohyd/m-cryst [Macrobid] 100 mg capsule 100 mg PO BID 7 Days Qty: 14 RF: 0 polyethylene glycol 3350 [Miralax] 17 gram/dose powder 17 g PO DAILY Qty: 238 RF: 0 dicyclomine 10 mg capsule 10 mg PO BID Qty: 14 RF: 0 Stand Alone Forms: Work/School Release
[2021-02-06] MEDS: 0.9 % Sodium Chloride 1,000 ML 999 ML IVCONT (12:48)
[2021-02-06 13:04] LABS: MANUAL DIFF FLAG NO
[2021-02-06 13:05] LABS: Basophils Percent Auto 0.2 % (0-2); Eosinophils Absolute Auto 0.1 X10*3/uL (0.0-0.4); Eosinophils Percent Auto 0.5 % (0-4); Hematocrit 38.4 % (37-47); Hemoglobin 12.7 g/dl (12.0-16.0); Imm Gran Abs Auto 0.05 X10*3/uL (0.00-0.03); Imm Gran Pct Auto 0.4 % (0.0-0.4); Lymphocytes Absolute Auto 1.9 X10*3/uL (1.2-4.9); Lymphocytes Percent Auto 15.2 % (20-40); Mean Corpuscular HGB Conc 33.1 g/dl (31.0-35.0); Mean Corpuscular Volume 87.7 fL (80-98); Mean Platelet Volume 9.9 fL (9.4-12.3); Monocytes Absolute Auto 0.6 X10*3/uL (0.1-1.2); Neutrophils Absolute Auto 10.1 X10*3/uL (2.0-8.3); Neutrophils Percent Auto 78.7 % (45-73); Platelet Count 319 X10*3/uL (160-400); Red Blood Count 4.38 X10*6/uL (4.20-5.50); Red Cell Distribution Width 12.4 % (11.0-16.0); White Blood Count 12.8 X10*3/uL (4.8-10.8)
[2021-02-06 13:42] LABS: Anion Gap 13 (12-20); Blood Urea Nitrogen 9 mg/dL (9-16); Calcium 9.3 mg/dL (8.4-10.2); Carbon Dioxide 23 mmol/L (22-29); Chloride 106 mmol/L (96-108); Creatinine Clr Calc Pharmacy 142.3; Estimated Glomerular Filt Rate > 60; Glucose Random 86 mg/dL (60-115); Potassium 3.7 mmol/L (3.3-5.1); Sodium 138 mmol/L (135-145)
[2021-02-06 13:44] LABS: Alanine Aminotransferase 26 U/L (0-31); Albumin Level 3.9 g/dL (3.5-5.0); Alkaline Phosphatase 116 U/L (39-117); Aspartate Amino Transferase 15 U/L (5-31); Bilirubin Direct 0.2 mg/dL (0.0-0.5); Bilirubin Total 0.4 mg/dL (0.0-1.0); Total Protein 7.4 g/dL (6.5-8.0)
[2021-02-06 15:39] VITALS: BP 123/68; PULSE 84; RESP 18; TEMP 37; O2SAT 100
[2021-02-06 16:46] VITALS: BP 120/70; PULSE 78; RESP 16; TEMP 37.2; O2SAT 100
== END 2021-02-06 16:51 | disposition home or self-care (01) ==
PROVIDERS: Emergency Provider Emergency Medicine; PCP Internal Medicine
DX: O20.0 Threatened abortion (principal); O41.8X10 Other specified disorders of amniotic fluid and membranes, first trimester, not applicable or unspecified; Z3A.01 Less than 8 weeks gestation of pregnancy
CPT/HCPCS: 36415; 76801; 80048; 80076; 83735; 84702; 85025; 86900; 86901; 96360; 99284

== ENCOUNTER 2021-02-13 10:45 | Outpatient (REF) | payer OTHER, SELFPAY ==
[2021-02-13 11:22] LABS: COVID-19 Test Negative (Negative)
== END 2021-02-13 10:46 | disposition home or self-care (01) ==
LOC: HO.LAB 10:45
PROVIDERS: Visit Provider Internal Medicine
DX: Z20.822 Contact with and (suspected) exposure to COVID-19 (principal)
CPT/HCPCS: 36415; 87635; C9803

== ENCOUNTER 2021-03-29 06:31 | Emergency (ER) | payer OTHER, SELFPAY ==
[2021-03-29 06:35] VITALS: BP 102/66; PULSE 89; RESP 16; TEMP 37.2; O2SAT 99; BMI 41.3
--- NOTE | 2021-03-29 07:43 | ED.ABDPAIN ---
HPI - Abdominal Pain General Chief Complaint: Abdominal Pain Stated Complaint: R side pain 15 wks Time Seen by Provider: 03/29/21 07:20 History of Present Illness HPI narrative: Patient is 25 years old presents today with having abdominal pain. The pain is mainly on the right side. It happens when the patient turns. It gets worse when patient sits up. The patient is approximately 15 weeks . Had an ultrasound done which showed an intrauterine . No fever no chills. No nausea no vomiting that is new. No diarrhea. No bleeding. Patient from home this is her 2nd . No coughing or congestion or upper respiratory symptoms. No diaphoresis. Related Data Previous Rx's Medication Instructions Recorded cefuroxime axetil 500 mg tablet 500 mg PO BID 10 Days #20 tab 10/29/20 ibuprofen 600 mg tablet 600 mg PO Q6H PRN #30 tab 10/29/20 ondansetron 4 mg disintegrating 4 mg PO Q8H PRN #20 tab 10/29/20 tablet phenazopyridine 200 mg tablet 200 mg PO TID PRN #6 tab 10/29/20 (Pyridium) dicyclomine 10 mg capsule 10 mg PO BID #14 cap 12/23/20 nitrofurantoin 100 mg PO BID 7 Days #14 cap 12/23/20 monohydrate/macrocrystals 100 mg capsule (Macrobid) ondansetron HCl 4 mg tablet 4 mg PO Q8H PRN #14 tab 12/23/20 (Zofran) polyethylene glycol 3350 17 17 g PO DAILY #238 g 12/23/20 gram/dose oral powder (Miralax) Allergies Allergy/AdvReac Type Severity Reaction Status Date / Time No Known Allergies Allergy Verified 02/06/21 12:16 Review of Systems Review of Systems No fever no chills No chest pain or shortness of breath No diaphoresis Tolerate p.o. Yes all other systems are reviewed and are negative Physical Exam Vital Signs: Vital Signs: Last Vital Signs Temp 99 F 03/29/21 06:35 Pulse 89 03/29/21 06:35 Resp 16 03/29/21 06:35 BP 102/66 03/29/21 06:35 Pulse Ox 99 03/29/21 06:35 Body Mass Index 41.3 Appearance: Alert. Oriented X3. No acute distress. Eyes: Pupils equal, round and reactive to light. ENT: Pharynx normal. Neck: Normal inspection. Neck supple. No lymph nodes noted. No crepitus CVS: Normal heart rate and rhythm. Pulses normal. Normal S1 and S2 Respiratory: No respiratory distress. Breath sounds normal. No Wheezing. No rales Abdomen: Fundal height at the level below the umbilicus. The abdomen is soft nontender. Skin: Skin warm and dry. Normal skin color. Normal skin turgor. Extremities: No lower extremity edema. Neurovascular intact to all extremities. No Lacerations. No Rash Neuro: Oriented X 3. No motor deficit. No sensory deficit. Moving all extermities. No slurred speech MDM - Abdominal Pain MDM Narrative Medical decision making narrative: Well-appearing no acute distress. heart tone was 145. Symptom worse with specific movement consistent with round ligament pain. Electrolytes unremarkable. White counts normal. Will discharge patient home. Follow up OBGYN on outpatient basis. In stable condition. Lab Data Result diagrams: 03/29/21 07:46 03/29/21 07:46 Labs: Lab Results 03/29/21 03/29/21 Range/Units 07:46 07:46 WBC 11.2 H (4.8-10.8) X10*3/uL RBC 4.09 L (4.20-5.50) X10*6/uL Hgb 11.7 L (12.0-16.0) g/dl Hct 34.6 L (37-47) % MCV 84.6 (80-98) fL MCH 28.6 (27.0-33.0) pg MCHC 33.8 (31.0-35.0) g/dl RDW 12.7 (11.0-16.0) % Plt Count 263 (160-400) X10*3/uL MPV 10.2 (9.4-12.3) fL Immature Gran % (Auto) 0.2 (0.0-0.4) % Neut % (Auto) 79.5 H (45-73) % Lymph % (Auto) 15.1 L (20-40) % [place] % (Auto) 4.5 (2-11) % Eos % (Auto) 0.6 (0-4) % Baso % (Auto) 0.1 (0-2) % Lymph # (Auto) 1.7 (1.2-4.9) X10*3/uL [place] # (Auto) 0.5 (0.1-1.2) X10*3/uL Eos # (Auto) 0.1 (0.0-0.4) X10*3/uL Baso # (Auto) 0.0 (0.0-0.2) X10*3/uL Abs Immat Gran (auto) 0.02 (0.00-0.03) X10*3/uL Absolute Neuts (auto) 8.9 H (2.0-8.3) X10*3/uL Absolute Nucleated RBC 0.000 (0.0-0.012) X10*3/uL Nucleated RBC % (auto) 0.0 (0.0-0.2) /100WBC Sodium 137 (135-145) mmol/L Potassium 3.7 (3.3-5.1) mmol/L Chloride 107 (96-108) mmol/L Carbon Dioxide 23 (22-29) mmol/L Anion Gap 11 L (12-20) BUN 5 L (9-16) mg/dL Creatinine 0.57 (0.5-1.4) mg/dL Estim Creat Clear Calc 169.2 Estimated GFR > 60 Random Glucose 95 (60-115) mg/dL Calcium 8.8 (8.4-10.2) mg/dL Total Bilirubin 0.4 (0.0-1.0) mg/dL AST 11 (5-31) U/L ALT 14 (0-31) U/L Alkaline Phosphatase 116 (39-117) U/L Total Protein 6.6 (6.5-8.0) g/dL Albumin 3.3 L (3.5-5.0) g/dL Lipase 8 (8-78) U/L Discharge Plan Discharge Clinical Impression: Abdominal pain Patient Disposition: Home, Self-Care Instructions: Abdominal Pain in (ED) Prescriptions: No Action cefuroxime axetil 500 mg tablet 500 mg PO BID 10 Days Qty: 20 RF: 0 ibuprofen 600 mg tablet 600 mg PO Q6H PRN (Reason: pain) Qty: 30 RF: 0 ondansetron 4 mg tablet,disintegrating 4 mg PO Q8H PRN (Reason: nausea and vomiting) Qty: 20 RF: 0 phenazopyridine [Pyridium] 200 mg tablet 200 mg PO TID PRN (Reason: pain) Qty: 6 RF: 0 ondansetron HCl [Zofran] 4 mg tablet 4 mg PO Q8H PRN (Reason: nausea and vomiting) Qty: 14 RF: 0 nitrofurantoin monohyd/m-cryst [Macrobid] 100 mg capsule 100 mg PO BID 7 Days Qty: 14 RF: 0 polyethylene glycol 3350 [Miralax] 17 gram/dose powder 17 g PO DAILY Qty: 238 RF: 0 dicyclomine 10 mg capsule 10 mg PO BID Qty: 14 RF: 0 Referrals: Ricardo Smith MD [Primary Care Provider] - 2 days (Follow-up with your OBGYN doctor in 2 days) [facility] Past Medical History Attestation statement: The following information was validated with the patient. Medical History No known health problems Social History Social History Alcohol intake: never Patient Tobacco Use Status: Never used Tobacco Use of substances other than those prescribed or required for medical reasons: No Advance Directives: No Patient : Yes
[2021-03-29] MEDS: 0.9 % Sodium Chloride 1,000 ML 999 ML IV (07:46)
[2021-03-29 07:50] LABS: MANUAL DIFF FLAG NO
[2021-03-29 07:52] LABS: Basophils Percent Auto 0.1 % (0-2); Eosinophils Absolute Auto 0.1 X10*3/uL (0.0-0.4); Eosinophils Percent Auto 0.6 % (0-4); Hematocrit 34.6 % (37-47); Hemoglobin 11.7 g/dl (12.0-16.0); Imm Gran Abs Auto 0.02 X10*3/uL (0.00-0.03); Imm Gran Pct Auto 0.2 % (0.0-0.4); Lymphocytes Absolute Auto 1.7 X10*3/uL (1.2-4.9); Lymphocytes Percent Auto 15.1 % (20-40); Mean Corpuscular HGB Conc 33.8 g/dl (31.0-35.0); Mean Corpuscular Hemoglobin 28.6 pg (27.0-33.0); Mean Corpuscular Volume 84.6 fL (80-98); Mean Platelet Volume 10.2 fL (9.4-12.3); Monocytes Absolute Auto 0.5 X10*3/uL (0.1-1.2); Monocytes Percent Auto 4.5 % (2-11); Neutrophils Absolute Auto 8.9 X10*3/uL (2.0-8.3); Neutrophils Percent Auto 79.5 % (45-73); Platelet Count 263 X10*3/uL (160-400); Red Blood Count 4.09 X10*6/uL (4.20-5.50); Red Cell Distribution Width 12.7 % (11.0-16.0); White Blood Count 11.2 X10*3/uL (4.8-10.8)
[2021-03-29 08:09] LABS: Alanine Aminotransferase 14 U/L (0-31); Albumin Level 3.3 g/dL (3.5-5.0); Alkaline Phosphatase 116 U/L (39-117); Anion Gap 11 (12-20); Aspartate Amino Transferase 11 U/L (5-31); Bilirubin Total 0.4 mg/dL (0.0-1.0); Blood Urea Nitrogen 5 mg/dL (9-16); Calcium 8.8 mg/dL (8.4-10.2); Carbon Dioxide 23 mmol/L (22-29); Chloride 107 mmol/L (96-108); Creatinine Clr Calc Pharmacy 169.2; Estimated Glomerular Filt Rate > 60; Glucose Random 95 mg/dL (60-115); Lipase 8 U/L (8-78); Potassium 3.7 mmol/L (3.3-5.1); Sodium 137 mmol/L (135-145); Total Protein 6.6 g/dL (6.5-8.0)
== END 2021-03-29 09:15 | disposition home or self-care (01) ==
PROVIDERS: Emergency Provider Emergency Medicine Emergency Medical Services; PCP Internal Medicine
DX: O26.892 Other specified pregnancy related conditions, second trimester (principal); R10.9 Unspecified abdominal pain; Z3A.15 15 weeks gestation of pregnancy
CPT/HCPCS: 36415; 80053; 83690; 85025; 96360; 99284

== ENCOUNTER → 2021-10-02 11:56 | Outpatient (BNVA) | payer OTHER, SELFPAY | PROVIDERS: Visit Provider Obstetrics & Gynecology | DX: Z13.89 Encounter for screening for other disorder (principal) ==

== ENCOUNTER 2022-11-13 09:11 | Emergency (ER) | payer OTHER, SELFPAY ==
[2022-11-13 09:36] VITALS: BP 125/87; PULSE 90; RESP 16; TEMP 36.8; O2SAT 99; BMI 36.6
--- NOTE | 2022-11-13 11:08 | ED.URI ---
HPI - URI/Sore Throat General Chief Complaint: Upper Respiratory Symptoms Stated Complaint: Congestion/Headache/Nausea Time Seen by Provider: 11/13/22 09:59 History of Present Illness HPI Narrative: patient complains of 2 days of runny nose mild cough, congestion and a mild headache, she had mild nausea yesterday but no vomiting no diarrhea Other family members are sick with vomiting and diarrhea but so far she has not experienced that She denies any abrupt onset headache she has had no fever no shortness of breath no difficulty breathing or swallowing no abdominal pain no dysuria no chest pain, she is eating and drinking normally Related Data Home Medications Medication Instructions Recorded Confirmed cephalexin 500 mg capsule 500 mg PO QID 10/02/21 Previous Rx's Medication Instructions Recorded ibuprofen 600 mg tablet 600 mg PO Q6H PRN pain #30 tabs 10/29/20 Allergies Allergy/AdvReac Type Severity Reaction Status Date / Time No Known Allergies Allergy Verified 10/02/21 11:56 [facility] Past Medical History Source: nursing notes reviewed Medical History No known health problems Surgical History S/P lumpectomy, right breast Family History Family History Maternal Aunt Breast CA Social History Social History Alcohol intake: never Patient Tobacco Use Status: Never used Tobacco Advance Directives: No Advance Directives Information Provided: Yes Physical Exam Vital Signs: Vital Signs: Last Vital Signs Temp 98.3 F 11/13/22 09:36 Pulse 90 11/13/22 09:36 Resp 16 11/13/22 09:36 BP 125/87 11/13/22 09:36 Pulse Ox 99 11/13/22 09:36 O2 Del Method Room Air 11/13/22 09:36 BMI result Body Mass Index 36.6 general appearance no distress comfortable Eyes no redness or discharge The sinuses nontender The pharynx is clear without redness swelling or exudate voice is normal Neck is supple Chest clear to auscultation bilateral Heart no murmur Abdomen soft nontender Extremities for range of motion x4 Skin no rash Course Course Course Narrative: well-appearing patient with main complaint of body aches and runny nose, no sputum no difficulty breathing no vomiting or diarrhea is discharged with diagnosis viral syndrome She was offered a COVID test but did not want to take it as she has 1 at home Discharge Plan Discharge Clinical Impression: Acute viral syndrome Patient Disposition: Home, Self-Care Additional Instructions: there is no sign of any dangerous or serious illness now Your exam was normal vital signs were good You likely have of viral illness and these usually resolve in a week to 10 days, there is no medical treatment for this type of virus Return any time any worse condition or any concerns Drink plenty of fluids, you can use Tylenol or Motrin for any aches or pains or fever Prescriptions: No Action ibuprofen 600 mg tablet 600 mg PO Q6H PRN (Reason: pain) Qty: 30 0RF cephalexin 500 mg capsule 500 mg PO QID Interventions: ED Discharge Assessment Last Done: 11/13/22 11:06 Discharge Date/Time: 11/13/22 11:06
== END 2022-11-13 11:06 | disposition home or self-care (01) ==
PROVIDERS: Emergency Provider Emergency Medicine
DX: B34.9 Viral infection, unspecified (principal); R05.9 Cough, unspecified; R51.9 Headache, unspecified
CPT/HCPCS: 99282

== ENCOUNTER 2025-05-10 17:43 | Emergency (ER) | payer OTHER, SELFPAY ==
--- OUTSIDE RECORDS SUMMARY | 2025-05-05 21:26 | XMS_ITS | Continuity of Care Document ---
Author Organization [facility] ter Address [address] [place] [id number]- Care Team Providers Care Knot Bumper Name Role Phone Luis WISE, Ricardo Tolliver Primary Care Physician [phone] Encounter [facility] [place] Date(s): 05/05/25 - 05/05/[address] [address]- Discharge Disposition: A-D/C Walkout Attending Physician: Not on Staff, Attending MD Admitting Physician: Not on Staff, Admitting MD Referring Physician: Not on Staff, Referring MD Encounter Type: Disch ES Allergies, Adverse Reactions, Alerts No Known Allergies Mental Status Mental Status Assessment Assessment Assessment Component Result Effecti ve Date [place] coma score total 15 Problem List Condition Confirmation Course Effective Dates Status Health St atus Informant Concussion Confirmed Active Exogenous obesity Confirmed Active Headache Confirmed Active Hyperthyroidism Confirmed Active Obese class II Confirmed Active Vertigo Confirmed Active Results Radiology Reports * Exam Date Time Procedure Performing Provider Status 05/05/25 6:15 PM Chest 2 Views Frontal and Lat Auth (Verified) Notes: (Chest 2 Views Frontal and Lat) Reason For Exam: Chest Pain;Other: RESULT: Chest 2 Views Frontal and Lat PROCEDURE: Chest 2 Views Frontal and Lat INDICATION: 29 years old Female with Reason: Other:; Chest Pain; Clinical Question(s): Other:. COMPARISON: Chest radiographs 2008 through March 08, 2013. FINDINGS: PA and lateral upright views of the chest obtained. Lines and tubes:None. Lungs and pleura: Lungs are clear. No pleural effusions.No evidence of pneumothorax. Heart, mediastinum and selina: The cardiomediastinal silhouette and pulmonary vasculature are unremarkable. No cardiomegaly or pulmonary venous hypertension. Bones and soft tissues: No other demonstrable abnormality. IMPRESSION: 1. No evidence of acute cardiopulmonary disease. Thank you for allowing me to participate in the care of this patient. WSN: [id number] Ordering Physician: Elías Norman Dictated By: Long Reyes MD Dictated Date/Time: 05/05/25 6:20 pm Reviewed By: Long Reyes MD Signed By: Long Reyes MD Signed Date/Time: 05/05/25 6:20 pm Transcribed By: JURGEN Transcribed Date/Time: 05/05/25 6:19 pm Vital Signs Most recent to oldest [Reference Range]: 1 2 Height 158 cm (05/05/25 8:03 PM) 158 cm (05/05/25 5:35 PM) Weight 61.5 kg (05/05/25 8:03 PM) Oxygen Saturation [94-100 %] 100 % (05/05/25 8:08 PM) 100 % (05/05/25 5:35 PM) Pulse Rate [55-90 bpm] 89 bpm (05/05/25 8:08 PM) 70 bpm (05/05/25 5:35 PM) Blood Pressure [90-138/55-84 mm Hg] 100/ 61mm Hg (05/05/25 8:08 PM) 105/66mm Hg (05/05/25 5:35 PM) Respiratory Rate [16-30 br/min] 16 br/mi n (05/05/25 8:08 PM) 17 br/min (05/05/25 5:35 PM) Temperature [96.8-100.4 DegF] 98.1 DegF (05/05/25 8:08 PM) 97.5 DegF (05/05/25 5:35 PM) Mode of Delivery (Oxygen) Room air (05/05/25 8:08 PM) Room air (05/05/25 5:35 PM) Blood pressure sites Arm, left (05/05/25 8:08 PM) Arm, right (05/05/25:35 PM) Temperature Route Oral (05/05/25 8:08 PM) Oral (05/05/25 5:35 PM) Dry Weight 61.5 kg (05/05/25 8:03 PM) 61.5 kg (11/14/25 5:35 PM) Weight Obtained Via Patient/family state d (05/05/25 8:03 PM) Social History Social History Type Response Smoking Status Never smoker entered on: 12/24/16 Sex Sex Representation Female (finding) Status Possible Patient Care team information Care Team Personnel Name: Edwige Petersen Position: [facility] Outreach Member Role: Lifetime Consulting Physician Name: Luis WISE, Ricardo Tolliver Position: Reference Physician Member Role: PCP Telecom: Care Team Related Persons Name: ASA GOSS Name: GIOVANNI SWEENEY Name: ROB ELKINS Insurance Providers Guarantor [facility] Plan Information #: 1 Payer: ED [employer] Payer Identifier: CLARK Member Number: [id number] Group Number: [id number] Subscriber Identifier: [id number] Relationship to Subscriber: self Coverage Type: Self-pay (Includes applicants for insurance and Medicaid applicants) Coverage Verification Date: NA Telecom: NA Address:
--- NOTE | 2025-05-10 17:57 | ECG_ITS ---
Test Reason : HEART RACING Blood Pressure : */* mmHG Vent. Rate : 59 BPM Atrial Rate : 59 BPM P-R Int : 102 ms QRS Dur : 80 ms QT Int : 418 ms P-R-T Axes : 23 31 34 degrees QTcB Int : 413 ms Sinus bradycardia with short MS Otherwise normal ECG No previous ECGs available Referred By: Rosa Barry Electronically Signed By: JENS GUZMAN
[2025-05-10 18:30] VITALS: BP 114/63; PULSE 60; RESP 16; TEMP 36.7; O2SAT 100; BMI 23.4
--- NOTE | 2025-05-10 18:30 | ED_ITS ---
HPI - Arrhythmia/Palpitations General Chief Complaint: Arrhythmia/Palpitations Stated Complaint: heart racing, feeling faint Time Seen by Provider: 05/10/25 20:40 History of Present Illness ED Provider: breanne PEARSON narrative: Date & Time: 2025-05-11 09:30 Patient Name: BRI: MRN: Author / Clinician: Vince Douglas MD Chief Complaint Palpitations with associated near-syncope episode early this morning. History of Present Illness Patient presents to the Emergency Department at approximately 09:30 for evaluation of an episode of palpitations occurring at ~04:30 this morning while standing in her kitchen. She describes an abrupt onset of feeling ?very hot,? profuse sweating, marked generalized weakness, and sensation that her ?heart was racing.? Symptoms lasted 10?15 minutes. She had to sit on the floor because her legs felt extremely heavy; she noted her legs appeared pale/bluish during the episode. Color and strength gradually returned over 5?10 minutes as the episode resolved. No chest pain before, during, or after the event though she did report a feeling of chest tightness while the palpitations were ongoing. Denies headache, shortness of breath, rash, or allergic symptoms. She experienced a similar episode on Thursday while standing at her sister?s hospital bedside; ED evaluation at that time included EKG and chest radiograph but she left prior to being seen by a physician. Medications: ursodiol (post-bariatric surgery June), pantoprazole, daily vitamins. Past surgical history: bariatric surgery June (year not specified) with ongoing weight loss; denies rapid weight loss-related issues. Diet/fluids: eating, drinking, urination, and bowel movements normal. Review of Systems Only positive / pertinent elements documented below; all other systems not discussed. - Constitutional: Positive for sudden sensation of heat, profuse sweating. - Cardiovascular: Positive for palpitations and transient chest tightness; denies chest pain outside episode. - Neurologic: Positive for generalized weakness and near-syncope; denies headache. - Respiratory: Denies shortness of breath. - Gastrointestinal: Eating and drinking well; normal urination and bowel movements. - Genitourinary: Normal urination. - Integumentary: Denies rash or itching. Physical Examination Vital Signs: Physical Exam: - General: Well-appearing young adult female, no acute distress. - HEENT: Oral mucosa moist, well-hydrated. - Cardiovascular: Regular rate and rhythm, no murmurs appreciated. - Respiratory: Lungs clear to auscultation bilaterally. - Abdomen: Soft, non-tender. - Extremities: No edema; no calf tenderness; normal color. - Skin: No pallor or rash. Additional negative history: Denies history of blood clots in legs or lungs (no prior DVT/PE); no leg swelling or calf tenderness. Emergency Department Course Diagnostics performed today: - EKG: Short MA interval noted; otherwise normal. - Laboratory studies: Electrolytes, cardiac enzymes, thyroid studies, kidney function, CBC all within normal limits. - test: Negative. - Respiratory viral panel (Flu/RSV/COVID): Negative. Ijevr-[id number] ultrasound / formal echocardiogram planned to assess for structural cardiac abnormalities. Family History Sister with paroxysmal atrial fibrillation and prolonged tachycardia episodes. Assessment & Plan Diagnosis: 1. Symptomatic palpitations with near-syncope; short MA interval on EKG ? concern for paroxysmal supraventricular tachycardia (possible Ddpmp-[id number]-[id number] syndrome). Plan: - Order echocardiogram today to evaluate for structural heart disease. - Arrange cardiology (electrophysiology) referral for ambulatory manufacturing technologist (?2 weeks) to capture arrhythmia episodes. - Continue current home medications (ursodiol, pantoprazole, vitamins). - All labs reviewed with patient; no intervention required at this time. Disposition Patient to be discharged home after completion of ED evaluation with outpatient cardiology follow-up arranged. Related Data Home Medications ?Medication ?Instructions ?Recorded ?Confirmed cephalexin 500 mg capsule 500 mg PO QID 10/02/21 Previous Rx's ?Medication ?Instructions ?Recorded ibuprofen 600 mg tablet 600 mg PO Q6H PRN pain #30 t abs 10/29/20 Allergies Allergy/AdvReac Type Severity Reaction Status Date / Time No Known Allergies Allergy Verified 05/10/25 18:32 [facility] Past Medical History Medical History No known health problems Surgical History S/P lumpectomy, right breast Family History Family History Maternal Aunt Breast CA Social History Social History Unable to assess alcohol history related to: Unknown Alcohol intake: never Patient Tobacco Use Status: Never used Tobacco Smoked in Last 30 Days: No Use of substances other than those prescribed or required for medical reasons: No Advance Directives: No Advance Directives Information Provided: No Physical Exam 2 Vital Signs: Vital Signs: Last Vital Signs Temp 98.3 F 05/10/25 22:50 Pulse 65 05/10/25 22:50 Resp 16 05/10/25 22:50 BP 113/74 05/10/25 22:50 Pulse Ox 100 05/10/25 22:50 O2 Del Method Room Air 05/10/25 22:50 BMI result Body Mass Index 23.4 Course Course Course Narrative: This is a Rapid Medical Exam performed in triage by Rosa Barry PA-C. Full HPI, ROS and PE to be performed by primary ED provider. 29 yo F presenting to the ED c/o lightheadedness, palpitations & tingling in feet x today while standing in kitchen - lasting about 15mins. Admits to assoc weakness. denies syncope/fall. Admits to CP at present. denies SOB PE: NAD, nontoxic appearing, ambulating with steady gait Plan: EKG, labs, viral testing, UA Medical Decision Making Medical Decision Making MDM Narrative: Medical Decision Makin-year-old female quite severe palpitations and near syncopal. No substantial chest. No hepatology to suggest DVT I doubt PE though this was considered the patient has got a family maternal history of cardiomyopathy unclear circumstances and sister has paroxysmal atrial fibrillation unsure relation to the patient's dysrhythmia but I sounds like she likely had significant tachy dysrhythmia cause your symptoms today. Bedside echo is reassuring see that report above. Electrolytes thyroid normal Asymptomatic while in the ED Preliminary Favored Differential Diagnosis: Tachyarrhythmia, vasovagal, dehydration, orthostasis, electrolyte derangement, thyroid disorder among additional considered etiologies Testing Interpreted Independently: Sinus rhythm MA sure, no ischemic changes Radiology or Lab testing Results Reviewed: ?See below for details Consults: ?See below for details Independent Historians/External Chart Reviews: ?See below for details Social Determinants of Health Impacting MDM/Planning: ?See below for details Lab Data MDM Lab Attestation statement: I reviewed the patient's lab results. 11/19/25 18:45 05/10/25 18:45 Labs: Lab Results 05/10/25 Range/Units 18:45 WBC 10.8 (4.8-10.8) X10*3/uL RBC 4.12 L (4.20-5.50) X10*6/uL Hgb 12.4 (12.0-16.0) g/dl Hct 37.7 (37.0-47.0) % MCV 91.5 (80.0-98.0) fL MCH 30.1 (27.0-33.0) pg MCHC 32.9 (31.0-35.0) g/dl RDW 11.9 (11.0-16.0) % Plt Count 258 (160-400) X10*3/uL MPV 10.1 (9.4-12.3) fL Immature Gran % (Auto) 0.2 (0.0-0.4) % Neut % (Auto) 75.1 H (45-73) % Lymph % (Auto) 19.3 L (20-40) % [place] % (Auto) 4.6 (2-11) % Eos % (Auto) 0.6 (0-4) % Baso % (Auto) 0.2 (0-2) % Lymph # (Auto) 2.1 (1.2-4.9) X10*3/uL [place] # (Auto) 0.5 (0.1-1.2) X10*3/uL Eos # (Auto) 0.1 (0.0-0.4) X10*3/uL Baso # (Auto) 0.0 (0.0-0.2) X10*3/uL Abs Immat Gran (auto) 0.02 (0.00-0.03) X10*3/uL Absolute Neuts (auto) 8.1 (2.0-8.3) x10*3/uL Absolute Nucleated RBC 0.000 (0.0-0.012) X10*3/uL Nucleated RBC % (auto) 0.0 (0.0-0.2) /100WBC Sodium 138 (135-145) mmol/L Potassium 3.7 (3.3-5.1) mmol/L Chloride 105 (96-108) mmol/L Carbon Dioxide 23 (22-29) mmol/L Anion Gap 14 (12-20) BUN 9 (9-16) mg/dL Creatinine 0.57 (0.5-1.4) mg/dL Estim Creat Clear Calc 120.4 Estimated GFR > 60 Random Glucose 95 (60-115) mg/dL Calcium 9.4 D (8.4-10.2) mg/dL Magnesium 2.2 (1.6-2.6) mg/dL Total Bilirubin 0.4 (0.0-1.0) mg/dL Direct Bilirubin 0.1 (0.0-0.5) mg/dL AST 26 (5-31) U/L ALT 22 (0-31) U/L Alkaline Phosphatase 117 (39-117) U/L Troponin I High Sens < 2.7 (<3.5-17.0) ng/L Total Protein 7.7 (6.5-8.0) g/dL Albumin 4.6 (3.5-5.0) g/dL TSH 1.31 (0.32-4.0) uIU/mL Beta HCG, Quant < 2 mIU/mL Influenza Type A (PCR) NEGATIVE (Negative) Influenza Type B (PCR) NEGATIVE (Negative) RSV RNA Qual (PCR) NEGATIVE (Negative) SARS-CoV-2 RNA (RT-PCR) NEGATIVE (Negative) Procedures Procedure Narrative Procedure Narrative: EMERGENCY ULTRASOUND INTERPRETATION-Limited Echocardiography [This study was ordered, performed, and interpreted by myself. The study reveals: Impression: NORMAL LV FUNCTION, NO RV DYSFUNCTION, NO PERICARDIAL EFFUSION] [Emergent Cardiac for Indication: Views Used: PLAX, PSSA, A4, SX, IVC Pericardial Effusion/Tamponade Findings: NONE RV Dilation (> LV diam in 4ch apical): NONE Global LV Fxn: NORMAL IVC Dilation and Resp Variation: NORMAL Performed by: MD Misael Images were stored CPT:66475] Discharge Plan Discharge Clinical Impression: Palpitations, Shortened MA interval Patient Disposition: Home, Self-Care Instructions: Heart Palpitations (DC), Electrophysiology Study (DC) Additional Instructions: You had a reassuring evaluation for rotations and passing out episode in the emergency department we found your EKG had a short MA interval which sometimes as associated with a specific type of arrhythmia that we will need to be looked into further with Cardiology. Stay well hydrated continue to take your medications as prescribed discuss the events with your bariatric or PCP doctor in cardiology here you may need outpatient comprehensive echocardiogram an outpatient set up for Holter monitor or event monitor Prescriptions: No Action ibuprofen 600 mg tablet 600 mg PO Q6H PRN (Reason: pain) Qty: 30 0RF cephalexin 500 mg capsule 500 mg PO QID Interventions: ED Discharge Assessment Last Done: 05/10/25 22:50 Discharge Date/Time: 05/10/25 22:52 Print Language: Khmer
[2025-05-10 19:04] LABS: MANUAL DIFF FLAG NO
[2025-05-10 19:05] LABS: Hematocrit 37.7 % (37.0-47.0); Hemoglobin 12.4 g/dl (12.0-16.0); Imm Gran Abs Auto 0.02 X10*3/uL (0.00-0.03); Imm Gran Pct Auto 0.2 % (0.0-0.4); Lymphocytes Absolute Auto 2.1 X10*3/uL (1.2-4.9); Mean Corpuscular HGB Conc 32.9 g/dl (31.0-35.0); Mean Corpuscular Hemoglobin 30.1 pg (27.0-33.0); Mean Corpuscular Volume 91.5 fL (80.0-98.0); NRBC Abs Auto 0.000 X10*3/uL (0.0-0.012); NRBC Pct Auto 0.0 /100WBC (0.0-0.2); Platelet Count 258 X10*3/uL (160-400); Red Blood Count 4.12 X10*6/uL (4.20-5.50); White Blood Count 10.8 X10*3/uL (4.8-10.8)
[2025-05-10 19:31] LABS: Alanine Aminotransferase 22 U/L (0-31); Albumin Level 4.6 g/dL (3.5-5.0); Alkaline Phosphatase 117 U/L (39-117); Anion Gap 14 (12-20); Aspartate Amino Transferase 26 U/L (5-31); Blood Urea Nitrogen 9 mg/dL (9-16); Calcium 9.4 mg/dL (8.4-10.2); Carbon Dioxide 23 mmol/L (22-29); Chloride 105 mmol/L (96-108); Creatinine Clr Calc Pharmacy 120.4; Estimated Glomerular Filt Rate > 60; Magnesium 2.2 mg/dL (1.6-2.6); Potassium 3.7 mmol/L (3.3-5.1); Sodium 138 mmol/L (135-145); Total Protein 7.7 g/dL (6.5-8.0)
[2025-05-10 19:42] LABS: Troponin-I High Sensitivity < 2.7 ng/L (<3.5-17.0)
[2025-05-10 19:57] LABS: Resp Syncy Virus RNA Qual PCR NEGATIVE (Negative); SARS COV2 PCR INHOUSE NEGATIVE (Negative)
--- NOTE | 2025-05-10 20:46 | PC.NURSE ---
Assumed care of pt, presents to the ED for chest pain with numbness to her body with shortness of breath that started today around 1630, pt states that she was in the kitchen and all of a sudden felt the symptoms, at moment lee [id number], pending provider teodoro
[2025-05-10 22:23] VITALS: BP 107/48; PULSE 59; RESP 16; TEMP 36.7; O2SAT 100
[2025-05-10 22:24] VITALS: BP 107/48; BP 113/68; BP 113/74; PULSE 55; PULSE 59; PULSE 65
[2025-05-10 22:50] VITALS: BP 113/74; PULSE 65; RESP 16; TEMP 36.8; O2SAT 100
--- OUTSIDE RECORDS SUMMARY | 2025-05-11 05:17 | XMS_ITS ---
[facility] Name [facility] Care Team Organization Name Specialty Phone Email Start Date End Da te [facility] Ricardo Smith Primary Care 04/29/2022 02/08/20 24
== END 2025-05-10 22:52 | disposition home or self-care (01) ==
PROVIDERS: Physician Assistant; Emergency Provider Emergency Medicine; PCP Internal Medicine
DX: R00.2 Palpitations (principal); R00.1 Bradycardia, unspecified; R55 Syncope and collapse; Z03.818 Encounter for observation for suspected exposure to other biological agents ruled out
CPT/HCPCS: 36415; 80048; 80076; 83735; 84443; 84484; 84702; 85025; 87637; 93005; 99284; 99285

== ENCOUNTER → 2025-05-10 17:57 | Outpatient (BNV) | payer OTHER, SELFPAY | PROVIDERS: Emergency Provider Emergency Medicine; PCP Internal Medicine; Visit Provider Internal Medicine | DX: R00.1 Bradycardia, unspecified (principal) | CPT/HCPCS: 93010 ==